=== PATIENT | female | born 1990 | race Hispanic/Latino ===

== ENCOUNTER 2021-10-03 13:41 | Emergency (ER) | payer SELFPAY ==
[2021-10-03 14:47] LABS: Hematocrit 33.2 % (36.0-45.0); Lymphocytes % 28.8 % (15.3-44.8); MPV 7.1 fL (7.6-11.3); RBC Red Blood Cell Count 4.85 M/uL (3.86-4.86)
[2021-10-03] MEDS ORDERED: NA CHLORIDE 0.9% 500 ML ONE (14:48)
[2021-10-03 14:51] LABS: Protime INR 0.96
[2021-10-03 15:10] LABS: ALT/SGPT 36 U/L (12-78); AST/SGOT 26 U/L (15-37); Albumin 3.6 g/dL (3.4-5.0); Alkaline Phosphatase 85 U/L (45-117); BUN Blood Urea Nitrogen 13 mg/dL (7-18); Bicarbonate 22 mmol/L (21-32); Bilirubin Total 0.2 mg/dL (0.2-1.0); Glucose Level 95 mg/dL (74-106); Magnesium 1.8 mg/dL (1.8-2.4); NT PRO-BNP 76 pg/mL (<125); Potassium 3.2 mmol/L (3.5-5.1); Protein, Total 7.9 g/dL (6.4-8.2); Sodium Level 137 mmol/L (136-145)
[2021-10-03] MEDS ORDERED: NA CHLORIDE 0.9% 1,000 ML ONE (15:26)
[2021-10-03 15:31] LABS: Anisocytosis SLIGHT; Blood Morphology Comment NOTED (NOT SEEN); Hypochromasia 1+; Platelet Estimate ADEQ; Poikilocytosis 1+; White Blood Cell Scan OK (OK)
[2021-10-03 15:33] LABS: Bilirubin Direct < 0.1 mg/dL (0-0.2); Troponin High Sensitivity < 3.00 pg/mL (<58.9)
[2021-10-03 15:37] LABS: Urine Blood Negative (Negative); Urine Glucose Negative (Negative); Urine Protein Negative (Negative); Urine Specific Gravity 1.025 (1.005-1.030)
[2021-10-03 15:56] LABS: Barbiturates NEGATIVE (NEGATIVE); Benzodiazepines NEGATIVE (NEGATIVE); Cocaine NEGATIVE (NEGATIVE); METHAMPHETAM POSITIVE (NEGATIVE); Methadone NEGATIVE (NEGATIVE); Opiates NEGATIVE (NEGATIVE); Phencyclidine NEGATIVE (NEGATIVE); THC Cannibis NEGATIVE (NEGATIVE)
--- NOTE | 2021-10-03 16:03 | RAD REPORT ---
EXAM DESCRIPTION: RAD - Chest Single View - 10/03/2021 3:53 pm CLINICAL HISTORY: DYSPNEA COMPARISON: No comparisons FINDINGS: Lines: None. Lungs: No evidence of edema or pneumonia. Pleural: No significant pleural effusions or pneumothorax. Cardiac: The heart size is within normal limits. Bones: No acute fractures. Other: IMPRESSION: No acute cardiopulmonary disease.
--- NOTE | 2021-10-03 16:22 | RAD REPORT ---
EXAM DESCRIPTION: CT - Chest For Pe Angio - 10/03/2021 4:04 pm CLINICAL HISTORY: Chest pain;Dyspnea COMPARISON: No comparisons FINDINGS: Chest Wall: No suspicious thyroid nodules or pathologic lymphadenopathy. Lungs: No acute abnormality. Pleura: No significant effusions or pneumothorax. Mediastinum/nathalie: Mild lymphadenopathy in the left supraclavicular and upper peritracheal region. For example, there is 1 lymph node measuring 8 millimeters . Pulmonary arteries/Aorta: No filling defect identified. No aortic aneurysm. Heart: No significant pericardial effusion. Normal heart size. Upper abdomen: No acute abnormality. Bones: No acute abnormality. All CT scans are performed using dose optimization technique as appropriate and may include automated exposure control or mA/KV adjustment according to patient size. IMPRESSION: Negative for pulmonary embolism. No acute findings within the chest. Upper peritracheal and supraclavicular lymphadenopathy that is mild. It is presumably reactive in this age group and in the absence of a known malignancy. No other evidence of lymphadenopathy identified.
[2021-10-03 16:34] LABS: Urine Specific Gravity/Preg 1.025 (1.005-1.030)
[2021-10-03] MEDS ORDERED: POTASSIUM 25 MEQ EFFERV TAB ONE (16:38)
--- NOTE | 2021-10-03 17:32 | ER ---
Nurse's Notes [facility] Name: Annie Simmons Age: 31 yrs Sex: Female : 1990 Arrival Date: 10/03/2021 Time: 13:42 Bed 19 Private MD: Diagnosis: Chest pain, unspecified;Dyspnea-CHEST LYMPHADENOPATHY;Adverse effect of amphetamines;Other psychoactive substance abuse;Abuse of other non-psychoactive substances;Hypokalemia Presentation: 10/03 13:56 Chief complaint: Spouse and/or significant other states: "We were eating at [employer] and ab2 she just started crying and breathing fast. I know she hasn't felt good, but it freaked me out." Pt states she has felt SOB and weak for 5 days. Pt states when she breathes fast she gets chest pressure. Coronavirus screen: Vaccine status: Patient reports being unvaccinated. Client denies travel out of the [place] in the last 14 days. At this time, the client does not indicate any symptoms associated with coronavirus-19. Ebola Screen: Patient negative for fever greater than or equal to 101.5 degrees Fahrenheit, and additional compatible Ebola Virus Disease symptoms Patient denies exposure to infectious person. Patient denies travel to an Ebola-affected area in the 21 days before illness onset. No symptoms or risks identified at this time. Initial Sepsis Screen: Does the patient meet any 2 criteria? No. Patient's initial sepsis screen is negative. Does the patient have a suspected source of infection? No. Patient's initial sepsis screen is negative. Risk Assessment: Do you want to hurt yourself or someone else? Patient reports no desire to harm self or others. Onset of symptoms is unknown. 13:56 Method Of Arrival: Wheelchair ab2 13:56 Acuity: LAW 3 ab2 Triage Assessment: 13:59 General: Appears in no apparent distress. uncomfortable, Behavior is anxious. ab2 Respiratory: Reports shortness of breath the patient has mild shortness of breath. 15:45 Respiratory: Onset: The symptoms/episode began/occurred today. jd3 Historical: - Allergies: 13:58 No Known Allergies; ab2 - Home Meds: 13:58 None [Active]; ab2 - PMHx: 13:58 Asthma; Anxiety; ab2 - PSHx: 13:58 Knee SX; ab2 - Immunization history:: Adult Immunizations up to date. - Social history:: Smoking status: Patient reports the use of cigarette tobacco products, denies chronic smoking, but will smoke occasionally, Patient uses street drugs, Methamphetamine (Meth). - Family history:: not pertinent. Screenin:44 Abuse screen: Denies threats or abuse. Nutritional screening: No deficits noted. jd3 Tuberculosis screening: No symptoms or risk factors identified. Fall Risk Ambulatory Aid- None/Bed Rest/Nurse Assist (0 pts). Gait- Normal/Bed Rest/Wheelchair (0 pts) Mental Status- Oriented to own ability (0 pts). Total Hancock Fall Scale indicates No Risk (0-24 pts). Assessment: 13:59 Pain: Complains of pain in chest. Cardiovascular: Reports chest pain, shortness of ab2 breath, Rhythm is. Respiratory: Airway is patent Respiratory effort is labored, Breath sounds are clear bilaterally. 14:55 Neuro: Level of Consciousness is awake, alert, Oriented to person, place, time, jd3 situation, Appropriate for age. 15:55 Reassessment: No changes from previously documented assessment. Patient and/or family ag7 updated on plan of care and expected duration. Pain level reassessed. Patient is alert, oriented x 3, equal unlabored respirations, skin warm/dry/pink. Patient states symptoms have improved. 16:06 Reassessment: No changes from previously documented assessment. Patient and/or family ag7 updated on plan of care and expected duration. Pain level reassessed. Patient is alert, oriented x 3, equal unlabored respirations, skin warm/dry/pink. Patient denies pain at this time. Patient states feeling better. Vital Signs: 13:56 BP 131 / 63; Pulse 97; Resp 28; Temp 97.9(O); Pulse Ox 100% on R/A; Weight 79.38 kg; ab2 Height 5 ft. 6 in. (167.64 cm); Pain 5/10; 14:07 BP 105 / 55; Pulse 70 MON; Resp 20 S; Pulse Ox 100% ; Pain 7/10; ag7 15:25 BP 104 / 67; Pulse 70 MON; Pulse Ox 100% on R/A; Pain 0/10; ag7 13:56 Body Mass Index 28.25 (79.38 kg, 167.64 cm) ab2 ED Course: 13:42 Patient arrived in ED. ds1 13:58 Triage completed. ab2 14:00 Arm band placed on right wrist. ab2 14:06 Lore Gutiérrez, KENIA is Primary Nurse. ag7 14:26 Adrian Trejo MD is Attending Physician. marissa 15:15 Inserted saline lock: 22 gauge in right antecubital area, using aseptic technique. jd3 Blood collected. 15:44 Patient has correct armband on for positive identification. Bed in low position. Call jd3 light in reach. Side rails up X 1. Adult w/ patient. Pulse ox on. NIBP on. 15:53 XRAY Chest (1 view) In Process Unspecified. EDMS 16:04 CT Chest For PE Angio In Process Unspecified. EDMS 17:30 Wayne Gilliam MD is Referral Physician. marissa 17:34 Test Urine - POC Sent. ww 17:43 No provider procedures requiring assistance completed. IV discontinued, intact, ag7 bleeding controlled, No redness/swelling at site. Pressure dressing applied. Administered Medications: 14:59 Drug: NS 0.9% 500 ml Route: IV; Rate: bolus; Site: right antecubital; jd3 15:31 Follow up: Response: No adverse reaction; IV Status: Completed infusion; IV Intake: ag7 500ml 15:30 Drug: NS 0.9% 1000 ml Route: IV; Rate: 125 ml/hr; Site: right antecubital; ag7 17:40 Follow up: IV Status: Completed infusion; IV Intake: 200ml ag7 16:40 Drug: Potassium Effervescent Tablet 25 mEq Route: PO; ag7 17:10 Follow up: Response: No adverse reaction ag7 17:42 Not Given (patient elopedd): Zithromax (azithromycin) 500 mg PO once ag7 17:42 Not Given (patient elopedd): Aspirin 81 mg PO once ag7 Intake: 15:31 IV: 500ml; Total: 500ml. ag7 17:40 IV: 200ml; Total: 700ml. ag7 Outcome: 17:32 Discharge ordered by . marissa 17:44 Eloped from patient exam room, after seeing physician Time discovered patient gone: ag7 October 03, 2021 at 17:40 17:44 Condition: stable 17:44 Instructed on patient eloped prior to receiving d/c paper work 17:47 Patient left the ED. ag7 Signatures: Dispatcher [employer] Adrian Babin MD MD cha Sanford, Demi ds1 Rafiq Cochran RN RN Jesica Flaherty RN RN ww Bleininger, Alexis ab2 Glenn, Angela, RN RN ag7
--- NOTE | 2021-10-03 17:33 | EDPHYS ---
Physician Documentation [facility] Name: Annie Simmons Age: 31 yrs Sex: Female : 1990 Arrival Date: 10/03/2021 Time: 13:42 Bed 19 Private MD: ED Physician Adrian Trejo HPI: 10/03 17:23 This 31 yrs old Female presents to ER via Wheelchair with complaints of marissa Dizziness, Shortness Of Breath. 17:23 The patient presents with dizziness, generalized weakness. marissa 17:24 The patient has shortness of breath with light activity. Onset: The symptoms/episode marissa began/occurred just prior to arrival. Duration: The symptoms are continuous, and are unchanged since they started. The patient's shortness of breath is aggravated by nothing, is alleviated by elevating head. The patient or guardian reports chest pain that is located primarily in the anterior chest wall, bilaterally. Onset: The symptoms/episode began/occurred 2 day(s) ago. Context: occurred at a restaurant. Modifying factors: The symptoms are alleviated by nothing, the symptoms are aggravated by nothing. Associated signs and symptoms: Pertinent positives: chest pain, shortness of breath. Associated signs and symptoms: The patient has no apparent associated signs or symptoms. Severity of symptoms: At their worst the symptoms were mild moderate in the emergency department the symptoms have improved moderately. Historical: - Allergies: 13:58 No Known Allergies; ab2 - Home Meds: 13:58 None [Active]; ab2 - PMHx: 13:58 Asthma; Anxiety; ab2 - PSHx: 13:58 Knee SX; ab2 - Immunization history:: Adult Immunizations up to date. - Social history:: Smoking status: Patient reports the use of cigarette tobacco products, denies chronic smoking, but will smoke occasionally, Patient uses street drugs, Methamphetamine (Meth). - Family history:: not pertinent. ROS: 17:24 Constitutional: Negative for fever, chills, and weight loss, Eyes: Negative for injury, marissa pain, redness, and discharge, ENT: Negative for injury, pain, and discharge, Neck: Negative for injury, pain, and swelling, Abdomen/GI: Negative for abdominal pain, nausea, vomiting, diarrhea, and constipation, Back: Negative for injury and pain, : Negative for injury, bleeding, discharge, and swelling, MS/Extremity: Negative for injury and deformity, Skin: Negative for injury, rash, and discoloration, Neuro: Negative for headache, weakness, numbness, tingling, and seizure, Psych: Negative for depression, anxiety, suicide ideation, homicidal ideation, and hallucinations, Allergy/Immunology: Negative for hives, rash, and allergies, Endocrine: Negative for neck swelling, polydipsia, polyuria, polyphagia, and marked weight changes, Hematologic/Lymphatic: Negative for swollen nodes, abnormal bleeding, and unusual bruising. 17:24 Cardiovascular: Positive for chest pain, with cough. 17:24 Respiratory: Positive for shortness of breath. Exam: 17:24 Constitutional: This is a well developed, well nourished patient who is awake, alert, marissa and in no acute distress. Head/Face: Normocephalic, atraumatic. Eyes: Pupils equal round and reactive to light, extra-ocular motions intact. Lids and lashes normal. Conjunctiva and sclera are non-icteric and not injected. Cornea within normal limits. Periorbital areas with no swelling, redness, or edema. ENT: Nares patent. No nasal discharge, no septal abnormalities noted. Tympanic membranes are normal and external auditory canals are clear. Oropharynx with no redness, swelling, or masses, exudates, or evidence of obstruction, uvula midline. Mucous membranes moist. Neck: Trachea midline, no thyromegaly or masses palpated, and no cervical lymphadenopathy. Supple, full range of motion without nuchal rigidity, or vertebral point tenderness. No Meningismus. Chest/axilla: Normal chest wall appearance and motion. Nontender with no deformity. No lesions are appreciated. Cardiovascular: Regular rate and rhythm with a normal S1 and S2. No gallops, murmurs, or rubs. Normal PMI, no JVD. No pulse deficits. Respiratory: Lungs have equal breath sounds bilaterally, clear to auscultation and percussion. No rales, rhonchi or wheezes noted. No increased work of breathing, no retractions or nasal flaring. Abdomen/GI: Soft, non-tender, with normal bowel sounds. No distension or tympany. No guarding or rebound. No evidence of tenderness throughout. Back: No spinal tenderness. No costovertebral tenderness. Full range of motion. Skin: Warm, dry with normal turgor. Normal color with no rashes, no lesions, and no evidence of cellulitis. MS/ Extremity: Pulses equal, no cyanosis. Neurovascular intact. Full, normal range of motion. Neuro: Awake and alert, GCS 15, oriented to person, place, time, and situation. Cranial nerves II-XII grossly intact. Motor strength 5/5 in all extremities. Sensory grossly intact. Cerebellar exam normal. Normal gait. Psych: Awake, alert, with orientation to person, place and time. Behavior, mood, and affect are within normal limits. 17:24 ECG was reviewed by the Attending Physician. 17:24 Musculoskeletal/extremity: ROM: intact in all extremities, full active range of motion, full passive range of motion, Circulation is intact in all extremities. Sensation intact. Compartment Syndrome exam of affected extremity: is normal. DVT Exam: No signs of deep vein thrombosis. no pain, no swelling, no tenderness, negative Homans' sign noted on exam, no appreciated bluish discoloration, no erythema, no increased warmth. Vital Signs: 13:56 BP 131 / 63; Pulse 97; Resp 28; Temp 97.9(O); Pulse Ox 100% on R/A; Weight 79.38 kg; ab2 Height 5 ft. 6 in. (167.64 cm); Pain 5/10; 14:07 BP 105 / 55; Pulse 70 MON; Resp 20 S; Pulse Ox 100% ; Pain 7/10; ag7 15:25 BP 104 / 67; Pulse 70 MON; Pulse Ox 100% on R/A; Pain 0/10; ag7 13:56 Body Mass Index 28.25 (79.38 kg, 167.64 cm) ab2 MDM: 14:26 Patient medically screened. marissa 17:26 Differential diagnosis: Anemia Anxiety Reaction Bronchitis CHF exacerbation, Chronic marissa Obstructive Pulmonary Disease abnormal EKG, acute pericarditis, anxiety, coronary artery disease congestive heart failure Cholelithiasis costochondritis, esophagitis, gastritis, gastroesophageal reflux disease (GERD), pleurisy, pneumonia, pulmonary embolus, stable angina, unstable angina, Myocardial Infarction pneumonia, pulmonary edema, Pulmonary Embolism reactive airway disease. Antibiotic administration: The patient is discharged and will get outpatient antibiotics, Zithromax. HEART Score: History: Slightly Suspicious (0), ECG: Normal (0), Age: < or = 45 years (0), Risk Factors: 1 or 2 risk factors (1), [Active Smoker] [+ Family HX] Troponin: < or = 1 x Normal Limit (0). Differential diagnosis: generalized weakness, near-syncope. The patient's Wells Deep Vein Thrombosis Score was calculated as follows: Total Score: 0. This patient was found to be at low risk for a deep vein thrombosis by using the Well's assessment criteria Total Score: 0-2 Pts- Low Risk. The patient's pulmonary embolism risk score was calculated as follows: Total Score: 0-2 points. This patient was found to be at low risk for a pulmonary embolism by using the Well's assessment criteria Total Score: 0-2 points. This patient was found to be at low risk for a pulmonary embolism by using the Well's assessment criteria. FLOR Risk Score: TOTAL SCORE = 0. Immunization status:. Data reviewed: vital signs, nurses notes, lab test result(s), EKG, radiologic studies, CT scan, plain films. Data interpreted: lunchroom monitor: rate is 70 beats/min, rhythm is normal sinus rhythm, Pulse oximetry: on room air is 100 %. Test interpretation: by ED physician or midlevel provider: ECG, plain radiologic studies. 10/03 14:28 Order name: Basic Metabolic Panel; Complete Time: 15:45 marissa 10/03 14:28 Order name: CBC with Diff; Complete Time: 15:45 marissa 10/03 14:28 Order name: LFT's; Complete Time: 15:45 marissa 10/03 14:28 Order name: Magnesium; Complete Time: 15:45 10/03 14:28 Order name: NT PRO-BNP; Complete Time: 15:45 10/03 14:28 Order name: PT-INR; Complete Time: 15:45 marissa 10/03 14:28 Order name: Troponin HS; Complete Time: 15:45 marissa 10/03 14:28 Order name: XRAY Chest (1 view); Complete Time: 16:40 marissa 10/03 14:28 Order name: CT Chest For PE Angio; Complete Time: 16:40 marissa 10/03 14:28 Order name: UDS; Complete Time: 16:40 marissa 10/03 14:49 Order name: CBC Smear Scan; Complete Time: 15:45 EDMS 10/03 15:37 Order name: Urine Dipstick-Ancillary EDMS 10/03 15:44 Order name: Test Urine - POC sp 10/03 15:44 Order name: Urine --Ancillary; Complete Time: 16:40 [facility] 10/03 14:28 Order name: EKG; Complete Time: 14:29 [facility] 10/03 14:28 Order name: Cardiac monitoring; Complete Time: 14:49 [facility] 10/03 14:28 Order name: EKG - Nurse/Tech; Complete Time: 14:49 [facility] 10/03 14:28 Order name: IV Saline Lock; Complete Time: 14:49 [facility] 10/03 14:28 Order name: Labs collected and sent; Complete Time: 14:50 [facility] 10/03 14:28 Order name: O2 Per Protocol; Complete Time: 14:50 [facility] 10/03 14:28 Order name: O2 Sat Monitoring; Complete Time: 14:50 [facility] 10/03 14:28 Order name: Urine Dipstick-Ancillary (obtain specimen); Complete Time: 15:39 [facility] 10/03 14:28 Order name: Urine Test (obtain specimen); Complete Time: 15:39 [facility] EC:24 Rate is 81 beats/min. Rhythm is regular. QRS Gregory is Normal. FL interval is normal. QRS marissa interval is normal. QT interval is normal. No Q waves. T waves are Normal. No ST changes noted. Clinical impression: NSR w/ Non-specific ST/T Changes and No evidence of ischemia. Interpreted by me. Reviewed by me. Administered Medications: 14:59 Drug: NS 0.9% 500 ml Route: IV; Rate: bolus; Site: right antecubital; jd3 15:31 Follow up: Response: No adverse reaction; IV Status: Completed infusion; IV Intake: ag7 500ml 15:30 Drug: NS 0.9% 1000 ml Route: IV; Rate: 125 ml/hr; Site: right antecubital; ag7 17:40 Follow up: IV Status: Completed infusion; IV Intake: 200ml ag7 16:40 Drug: Potassium Effervescent Tablet 25 mEq Route: PO; ag7 17:10 Follow up: Response: No adverse reaction ag7 17:42 Not Given (patient elopedd): Zithromax (azithromycin) 500 mg PO once ag7 17:42 Not Given (patient elopedd): Aspirin 81 mg PO once ag7 Disposition Summary: 10/03/21 17:32 Discharge Ordered Location: Home marissa Problem: new marissa Symptoms: have improved marissa Condition: Stable marissa Diagnosis - Chest pain, unspecified marissa - Dyspnea - CHEST LYMPHADENOPATHY marissa - Adverse effect of amphetamines marissa - Other psychoactive substance abuse marissa - Abuse of other non-psychoactive substances marissa - Hypokalemia marissa Followup: marissa - With: Private Physician - When: 2 - 3 days - Reason: Recheck today's complaints, Continuance of care, Re-evaluation by your physician Followup: marissa - With: Wayne Gilliam MD - When: 2 - 3 days - Reason: Recheck today's complaints, Re-evaluation by your physician Discharge Instructions: - Discharge Summary Sheet marissa - Nonspecific Chest Pain, Adult marissa - Potassium Content of Foods marissa - Substance Use Disorder marissa - Nonspecific Chest Pain, Adult, [id number] marissa - Methamphetamines Use Disorder marissa - Aspirin and Your Heart marissa Forms: - Medication Reconciliation Form marissa - Thank You Letter marissa - Antibiotic Education marissa - Prescription Opioid Use marissa Prescriptions: - Zithromax Z-Gt 250 mg Oral Tablet - take 1 tablet by ORAL route as directed for 5 days Day 1 - take two (2) tablets marissa one time. Day 2, 3, 4 , 5 take one (1) tablet once daily.; 6 tablet; Refills: 0, Product Selection Permitted - Pepcid 20 mg Oral Tablet - take 1 tablet by ORAL route every 12 hours for 15 days; 30 tablet; Refills: 0, marissa Product Selection Permitted Signatures: Dispatcher [employer] Adrian Babin MD MD cha Davies, Jonathon RN RN jd3 Sd Solo Angela, RN RN ag7
[2021-10-03 17:54] VITALS: TEMP 97.9; O2SAT 100
[2021-10-03 17:56] VITALS: BP 104/67
== END 2021-10-03 17:47 | disposition home or self-care (01) ==
LOC: ER 13:41
DX: R07.9 Chest pain, unspecified (principal); R06.00 Dyspnea, unspecified; R59.0 Localized enlarged lymph nodes; T43.625A Adverse effect of amphetamines, initial encounter; F19.10 Other psychoactive substance abuse, uncomplicated; F55.8 Abuse of other non-psychoactive substances; E87.6 Hypokalemia; F17.210 Nicotine dependence, cigarettes, uncomplicated
CPT/HCPCS: 36415; 71045; 71275; 80048; 80076; 80307; 81003; 81025; 83735; 83880; 84484; 85025; 85610; 93005; 96360; 96361; 99284; J7030; J7040; Q9967

== ENCOUNTER 2023-01-19 23:44 | Emergency (ER) | payer SELFPAY ==
[~2023-01-19 23:44] MED LIST: NALOXONE HCL 2 MG/2 ML VIAL ONE
[2023-01-20 00:21] LABS: Absolute Lymphocytes (CBC) 2.7 K/uL (0.7-4.9); Hematocrit 29.6 % (36.0-45.0); Lymphocytes % 29.9 % (15.3-44.8); MCV 63.3 fL (80-100); MPV 6.7 fL (7.6-11.3); RBC Red Blood Cell Count 4.67 M/uL (3.86-4.86)
[2023-01-20 00:34] LABS: Urine Bacteria <20 /HPF (<20); Urine Bilirubin NEGATIVE (Negative); Urine Blood Negative (Negative); Urine Clarity Turbid (Clear); Urine Color Yellow (Yellow); Urine Glucose NEGATIVE (Negative); Urine Mucus Slight /HPF (None Seen); Urine Protein TRACE (Negative); Urine RBC <5 /HPF (None Seen); Urine Urobilinogen 1+ (Normal)
[2023-01-20 00:43] LABS: Protime INR 0.8
[2023-01-20 00:46] LABS: ALT/SGPT 25 U/L (13-56); AST/SGOT 17 U/L (15-37); Albumin 3.7 g/dL (3.4-5.0); Alkaline Phosphatase 90 U/L (45-117); BUN Blood Urea Nitrogen 15 mg/dL (7-18); Barbiturates NEGATIVE (NEGATIVE); Benzodiazepines NEGATIVE (NEGATIVE); Bicarbonate 26 mEq/L (21-32); Bilirubin Direct < 0.1 mg/dL (0-0.2); Bilirubin Indirect, Calculated ND mg/dL (0.2-0.8); Bilirubin Total 0.2 mg/dL (0.2-1.0); Cocaine NEGATIVE (NEGATIVE); Glomerular Filtration Rate 96 ml/min (=/>90); Glucose Level 93 mg/dL (74-106); METHAMPHETAM POSITIVE (NEGATIVE); Methadone NEGATIVE (NEGATIVE); Opiates NEGATIVE (NEGATIVE); Phencyclidine NEGATIVE (NEGATIVE); Potassium 3.2 mEq/L (3.5-5.1); Protein, Total 7.6 g/dL (6.4-8.2); Sodium Level 141 mEq/L (136-145); THC Cannibis NEGATIVE (NEGATIVE)
[2023-01-20] MEDS ORDERED: NA CHLORIDE 0.9% 2,000 ML ONE (01:23)
[2023-01-20] MEDS ORDERED: ONDANSETRON 4 MG/2 ML VIAL ONE (01:23)
--- NOTE | 2023-01-20 03:16 | EDPHYS ---
Physician Documentation [facility] Name: Annie Simmons Age: 32 yrs Sex: Female : 1990 Arrival Date: 01/19/2023 Time: 23:44 Bed 14 Private MD: ED Physician Destin Jaime HPI: 01/19 23:55 This 32 yrs old Female presents to ER via EMS with complaints of overdose. sp4 01/20 02:57 32-year-old female presents with acute overdose at 22:45. sp4 03:05 EMS reports patient consumed over 50 tablets of gabapentin 100 mg tablets. Patient sp4 states that she estimates it was over 50 tablets of gabapentin but she cannot recall precise number. Patient also states she swallowed some crystal meth. Patient states she is from [place] and she moved here in an area about 4 years ago.. 03:07 Based on the record patient was positive for crystal meth use in September 2021. Patient sp4 reported to was feeling unwell and the reason to do gabapentin was to feel numb. Patient made some suicidal statements to the EMS prior to arrival here. Patient is currently under emergency chcf order. Emergency chcf order states that this patient has attempted suicide via overdose. Patient herself is evasive during the interview and states she does not want to go to the psychiatric hospital. But she is not clear with respect to if she is truly suicidal. . ANESTHESIA TECH: 00:00 LMP 12/2022 as6 Historical: - Allergies: 01/19 23:51 No Known Allergies; as6 - PMHx: 23:51 Anxiety; Asthma; Depressive disorder; PTSD; as6 - PSHx: 23:51 knee sx; leg; elbow; as6 - Immunization history:: Client reports having NOT received the Covid vaccine. - Social history:: Smoking status: Reported history of juuling and/or vaping. - Family history:: not pertinent. ROS: 01/20 03:07 Constitutional: Negative for fever, chills, and weight loss, Psych: Positive for sp4 depression, positive for methamphetamine abuse, positive for consumption of multiple gabapentin pills. Exam: 03:07 Constitutional: This is a well developed, well nourished patient who is awake, alert, sp4 patient is tremulous on arrival, appears emotionally upset and intoxicated. Head/Face: Normocephalic, atraumatic. Eyes: Pupils equal round and reactive to light, extra-ocular motions intact. Lids and lashes normal. Conjunctiva and sclera are not injected. Cornea within normal limits. Periorbital areas with no swelling, redness, or edema. ENT: Nares patent. No nasal discharge, no septal abnormalities noted. Tympanic membranes are normal and external auditory canals are clear. Oropharynx with no redness, swelling, or masses, exudates, or evidence of obstruction, uvula midline. Mucous membranes moist. Neck: Trachea midline, no thyromegaly or masses palpated, and no cervical lymphadenopathy. Supple, full range of motion without nuchal rigidity, or vertebral point tenderness. Chest/axilla: Normal chest wall appearance and motion. Nontender with no deformity. No lesions are appreciated. Cardiovascular: Regular rate and rhythm with a normal S1 and S2. No gallops, murmurs, or rubs. Normal PMI, no JVD. No pulse deficits. Respiratory: Lungs have equal breath sounds bilaterally, clear to auscultation and percussion. No rales, rhonchi or wheezes noted. No increased work of breathing, no retractions or nasal flaring. Abdomen/GI: Soft, non-tender, with normal bowel sounds. No distension or tympany. No guarding or rebound. No evidence of tenderness throughout. Back: No spinal tenderness. No costovertebral tenderness. Skin: Warm, dry with normal turgor. Normal color , multiple excoriations present secondary to methamphetamine abuse MS/ Extremity: Pulses equal, no cyanosis. Neurovascular intact. Full, normal range of motion. Neuro: Awake and alert, GCS 15, oriented to person, place, time, and situation. Cranial nerves II-XII grossly intact. Motor strength 5/5 in all extremities. Sensory grossly intact. Psych: Awake, alert, with orientation to person, place , appears anxious and tremulous on arrival, appears intoxicated, appears to have some degree of depression, denied homicidal or suicidal ideation or plan 03:07 ECG was reviewed by the Attending Physician. EKG at 0008 01/20/2023 reveals normal sp4 sinus rhythm at a rate of 84 , no ectopy, no ST elevation or depression. Vital Signs: 01/19 23:51 Weight 80.29 kg (R); Height 5 ft. 6 in. (R); Pain 8/10; as6 01/20 00:00 BP 111 / 71; Pulse 86; Resp 18 S; Temp 98.4(TE); Pulse Ox 100% on R/A; as6 07:41 BP 112 / 68 RA; Pulse 72 RA; Resp 18; Temp 98.1(O); Pulse Ox 100% on R/A; tt4 01/19 23:51 Body Mass Index 28.57 (80.29 kg, 167.64 cm) as6 01/19 23:51 Pain Scale: Adult as6 MDM: 01/19 23:56 Patient medically screened. sp4 01/20 03:07 Differential diagnosis: Ingestion/exposure to Gabapentin overdose polypharmacy, over sp4 medication. Data reviewed: vital signs, nurses notes. 03:13 ED course: Poison control was contacted regarding gabapentin ingestion. Patient's case sp4 number is [id number]. Poison control advised IV hydration, mental status monitoring, advised that gabapentin can cause ataxia and somnolence. Poison control advised patient monitoring for the 8 hours after ingestion and ensuring that mental status is normal. Apart from that no other recommendations. After monitoring parameters have been fulfilled with plan to consult [facility] psychiatric counselor for assessment in the emergency department. . 05:07 ED course: Patient was reevaluated at 0 5:08 AM and she awakens without problem mental sp4 status is normal. Will consult [facility] psychiatric counselor to come in and evaluate patient for suicidality and overdose. . 08:39 ED course: Patient reevaluated this morning. Patient endorses taking gabapentin. ms3 Informed patient she is currently under TORI and [facility] recommends inpatient treatment. Patient is calm, alert, in no apparent distress. 09:49 ED course: Discussed case with Dr Luna and she accepts patient to [facility]. ms3 01/19 23:56 Order name: Acetaminophen; Complete Time: 02:56 sp4 01/19 23:56 Order name: Basic Metabolic Panel; Complete Time: 02:56 sp4 01/19 23:56 Order name: CBC with Diff; Complete Time: 02:56 sp4 01/19 23:56 Order name: ETOH Level; Complete Time: 02:56 sp4 01/19 23:56 Order name: Hepatic Function; Complete Time: 02:56 sp4 01/19 23:56 Order name: PT-INR; Complete Time: 02:56 sp4 01/19 23:56 Order name: Test, Urine; Complete Time: 02:56 01/19 23:56 Order name: Ptt, Activated; Complete Time: 02:56 sp01/19 23:56 Order name: Salicylate; Complete Time: 02:56 sp4 01/19 23:56 Order name: Urinalysis w/ reflexes; Complete Time: 02:56 sp01/19 23:56 Order name: Urine Drug Screen; Complete Time: 02:56 sp4 01/19 23:56 Order name: EKG; Complete Time: 23:57 sp4 01/20 06:57 Order name: Diet Finger Food; Complete Time: 06:58 3 01/19 23:56 Order name: EKG - Nurse/Tech; Complete Time: 00:12 sp01/19 23:56 Order name: IV Saline Lock; Complete Time: 00:12 sp4 01/19 23:56 Order name: Labs collected and sent; Complete Time: 00:12 01/19 23:56 Order name: Suicide Precautions; Complete Time: 00:12 sp01/19 23:56 Order name: Suicide Screening ([place]); Complete Time: 00:12 4 EC:07 Rate is 84 beats/min. Rhythm is regular, Normal Sinus Rhythm. QRS [place] is Normal. [place] sp4 interval is normal. QRS interval is normal. QT interval is normal. T waves are Normal. No ST changes noted. Clinical impression: Normal ECG. Interpreted by me. Administered Medications: 01:20 Drug: Ondansetron IVP 4 mg Route: IVP; Site: right antecubital; ll3 01:20 Drug: NS 0.9% IV 1000 ml Route: IV; Rate: 1 bolus; Site: right antecubital; ll3 02:47 Follow up: Response: No adverse reaction; IV Status: Completed infusion; IV Intake: ll3 1000ml 02:46 Drug: NS 0.9% IV 1000 ml Route: IV; Rate: 125 ml/hr; Site: right antecubital; ll3 03:33 Drug: Potassium Chloride PO 40 mEq Route: PO; ll3 03:52 Not Given (Physician Discretion): Ativan IVP 2 mg IVP once ll3 Disposition Summary: 01/20/23 03:16 Transfer Ordered Transfer Location: Psych Facility sp4 Reason: Higher level of care sp4 Condition: Stable sp4 Problem: new sp4 Symptoms: are unchanged sp4 Accepting Physician: Psychiatric institution attending (01/20/23 11:22) os Diagnosis - Acute depression, methamphetamine abuse, gabapentin overdose, suicide attempt, mood sp4 disorder Forms: - Medication Reconciliation Form sp4 - SBAR form sp4 Signatures: Dispatcher [employer] EDSaurabh Hampton DO DO ms3 Renard Parra RN RN as6 Johnie Hay RN RN ll3 Destin Jaime MD MD sp4 Mark Jenkins RN RN os Corrections: (The following items were deleted from the chart) 11:22 03:16 Psychiatric institution attending MD hodgson os
--- NOTE | 2023-01-20 03:16 | ER ---
Nurse's Notes [facility] Name: Annie Simmons Age: 32 yrs Sex: Female : 1990 Arrival Date: 01/19/2023 Time: 23:44 Bed 14 Private MD: Diagnosis: Acute depression, methamphetamine abuse, gabapentin overdose, suicide attempt, mood disorder Presentation: 01/19 23:51 Chief complaint: EMS states: called out for pt taking around 50 pills of gabapentin and as6 meth in attempt to "feel numb" pt has had past suicide attempts. Coronavirus screen: At this time, the client does not indicate any symptoms associated with coronavirus-19. Ebola Screen: No symptoms or risks identified at this time. Risk Assessment: Do you want to hurt yourself or someone else? Patient reports desire/thoughts of hurting themselves or someone else. Provider notified. Onset of symptoms was January 19, 2023. 23:51 Acuity: LAW 2 as6 23:51 Method Of Arrival: EMS: [facility] as6 01/20 01:14 Initial Sepsis Screen: Does the patient meet any 2 criteria? No. Patient's initial as6 sepsis screen is negative. Does the patient have a suspected source of infection? No. Patient's initial sepsis screen is negative. MAKEUP SALES ADVISOR: 00:00 LMP 12/2022 as6 Historical: - Allergies: 01/19 23:51 No Known Allergies; as6 - PMHx: 23:51 Anxiety; Asthma; Depressive disorder; PTSD; as6 - PSHx: 23:51 knee sx; leg; elbow; as6 - Immunization history:: Client reports having NOT received the Covid vaccine. - Social history:: Smoking status: Reported history of juuling and/or vaping. - Family history:: not pertinent. Screenin/30 01:14 [facility] ED Fall Risk Assessment (Adult) Score/Fall Risk Level 0 - 2 = Low Risk. Abuse as6 screen: Denies threats or abuse. Denies injuries from another. Nutritional screening: No deficits noted. Tuberculosis screening: No symptoms or risk factors identified. Assessment: 00:11 General: [facility] notified to write TORI. as6 00:15 General: Appears comfortable, Behavior is calm, cooperative, drowsy, flat. Pain: Denies ll3 pain. Neuro: Level of Consciousness is awake, obeys commands, lethargic, Oriented to person, place, time, situation. Respiratory: Respiratory effort is even, unlabored, Respiratory pattern is regular, symmetrical. Derm: Skin is pink, warm \\T\\ dry. 05:55 General: pt speaking with [employer] . as6 09:49 Reassessment: Patient was reassessed for suicidal ideation. Patient states that she os still had thoughts of hurting herself by taking more pills. Patient was asked what brought on these thoughts, patient answered. " I've been having more and more arguments with my partner. My dad is really sick back in [place]. I've been paying for his house, and it's one of the causes for the arguments with my partner". 09:53 Reassessment: RN to RN report given to [facility]. Spoke with Meghan. os Psych: 01:12 [place] Suicide Severity Screening: In the past month, have you wished you were as6 or wished you could go to sleep and not wake up? Patient responds "yes." Based off the client's responses additional C-SSRS screening is required. "In the past month, have you actually had any thoughts of killing yourself?" Patient responds "yes." Based off the client's response additional [place] suicide severity screening questions to be further documented on paper forms. "In your lifetime, have you ever done anything, started to do anything, or prepared to do anything to end your life?" Patient responds "yes." Patient reports suicidal intent within 3 past months. Patient reports suicidal intent occurred greater than 3 months prior. Subjective: Patient's mood is sad, Delusions are denied, Hallucinations are denied Having thoughts of suicide. Objective: Patient is cooperative, Speech is normal, Affect is appropriate. Interventions: Removed personal items and placed in bag. Patient placed in hospital gown. Searched person for dangerous items. Urine collected and sent for urine drug test. Belonging list filled out. Safety Checks: Personal items have been removed. Door is open. No visitors are present at this time. Patient uses methamphetamines Last use was 1 days ago. Commitment: Patient will be an involuntary commitment. Commitment papers completed. Vital Signs: 01/19 23:51 Weight 80.29 kg (R); Height 5 ft. 6 in. (R); Pain 8/10; as6 01/20 00:00 BP 111 / 71; Pulse 86; Resp 18 S; Temp 98.4(TE); Pulse Ox 100% on R/A; as6 07:41 BP 112 / 68 RA; Pulse 72 RA; Resp 18; Temp 98.1(O); Pulse Ox 100% on R/A; tt4 01/19 23:51 Body Mass Index 28.57 (80.29 kg, 167.64 cm) as6 01/19 23:51 Pain Scale: Adult as6 ED Course: 01/19 23:51 Patient arrived in ED. as6 23:51 Safety Checks: Personal items have been removed. The door is open or patient has been ll3 placed in a hallway bed/chair. There are no family/friend visitors at this time Sitter present at this time. 23:51 Arm band placed on. as6 23:54 Triage completed. as6 23:55 Destin Jaime MD is Attending Physician. sp4 01/20 00:12 Acetaminophen Sent. bc6 00:13 Basic Metabolic Panel Sent. bc6 00:13 CBC with Diff Sent. bc6 00:13 ETOH Level Sent. bc6 00:13 Hepatic Function Sent. bc6 00:13 PT-INR Sent. bc6 00:13 Test, Urine Sent. bc6 00:13 Ptt, Activated Sent. bc6 00:13 Salicylate Sent. bc6 00:13 Urinalysis w/ reflexes Sent. bc6 00:13 Urine Drug Screen Sent. bc6 00:13 Inserted saline lock: 20 gauge in right antecubital area, using aseptic technique. bc6 01:14 Bed in low position. Patient is placed in psych hold. as6 01:43 Appears to be sleeping. ll3 04:00 Appears to be sleeping. ll3 07:13 Mark Jenkins, RN is Primary Nurse. os 09:23 connected Meghan Lee from [facility] with Mark Lee for patient transfer eb consultation. 09:27 paged the [facility] Resident director non profit for [facility] for Dr. Ramirez. eb 09:[address] Luna from [facility] with Dr. Ramirez for patient transfer eb consultation. 09:59 administrative approval given by Eloise Hager / patient been accepted to [facility]. 10:39 [facility] called for transport. eb 11:21 No provider procedures requiring assistance completed. IV discontinued. os Administered Medications: 01:20 Drug: Ondansetron IVP 4 mg Route: IVP; Site: right antecubital; ll3 01:20 Drug: NS 0.9% IV 1000 ml Route: IV; Rate: 1 bolus; Site: right antecubital; ll3 02:47 Follow up: Response: No adverse reaction; IV Status: Completed infusion; IV Intake: ll3 1000ml 02:46 Drug: NS 0.9% IV 1000 ml Route: IV; Rate: 125 ml/hr; Site: right antecubital; ll3 03:33 Drug: Potassium Chloride PO 40 mEq Route: PO; ll3 03:52 Not Given (Physician Discretion): Ativan IVP 2 mg IVP once ll3 Medication: 01:14 VIS not applicable for this client. as6 Intake: 02:47 IV: 1000ml; Total: 1000ml. ll3 Outcome: 03:16 ER care complete, transfer ordered by . sp4 11:21 Transferred Constable. Note: [facility] os 11:22 Patient left the ED. os Signatures: Qing Kraft Ashby RN RN as6 Johnie Hay RN RN ll3 Kelsey Latham6 Destin Jaime MD MD sp4 Mark Jenkins RN RN os Lisa Leija tt4
[2023-01-20] MEDS ORDERED: POTASSIUM CL SA 10 MEQ TAB PO ONE (03:31)
--- NOTE | 2023-01-20 08:48 | EKG ---
Test Date: 2023-01-20 Test Time: 00:08:16 Water Pumper: JANE MEASUREMENT RESULTS: Intervals: Rate: 84 HI: 144 QRSD: 92 QT: 372 QTc: 439 [place]: P: 64 HI: 144 QRS: 73 T: 58 INTERPRETIVE STATEMENTS: Normal sinus rhythm Normal ECG Compared to ECG 10/03/2021 13:21:35 Right-axis deviation no longer present Electronically Signed On 01-20-23 08:47:21 CDT by Magdiel Silva
[2023-01-20 11:29] VITALS: O2SAT 100
[2023-01-20 11:31] VITALS: BP 112/68; TEMP 98.1
== END 2023-01-20 11:22 ==
LOC: ER 23:44
DX: T42.6X2A Poisoning by other antiepileptic and sedative-hypnotic drugs, intentional self-harm, initial encounter (principal); F32.A Depression, unspecified; F15.10 Other stimulant abuse, uncomplicated; F39 Unspecified mood [affective] disorder
CPT/HCPCS: 36415; 80048; 80076; 80143; 80179; 80307; 81001; 81025; 82077; 85025; 85610; 85730; 93005; 96361; 96374; 99285; J2310; J2405; J7030